=== PATIENT | female | born 1985 | race Caucasian/White ===

== ENCOUNTER 2020-09-05 08:44 | Emergency (ER) | payer OTHER ==
[~2020-09-05] VITALS: Ht 170.2 cm; Wt 113.4 kg
[~2020-09-05 08:44] MED LIST: NAPROXEN
[2020-09-05] MEDS ORDERED: HYDROCODONE/APAP 7.5MG-325MG 1 EA TAB PO ONE (09:15)
== END 2020-09-05 11:46 | disposition home or self-care (01) ==
LOC: ER 08:52
DX: U07.1 COVID-19 (principal); R50.9 Fever, unspecified; R05 Cough; R06.02 Shortness of breath; I82.811 Embolism and thrombosis of superficial veins of right lower extremity; M79.604 Pain in right leg; M79.605 Pain in left leg; R53.81 Other malaise; K21.9 Gastro-esophageal reflux disease without esophagitis
CPT/HCPCS: 93970; 99284